=== PATIENT | male | born 1990 ===

== ENCOUNTER 2017-04-10 23:56 | Observation (INO) | payer SELFPAY ==
--- NOTE | 2017-04-11 00:42 | C.PDOC ---
History Of Present Illness <Mauro Farias Oswaldo - Last Filed: 04/11/17 06:48> <Susanna Gregory - Last Filed: 04/12/17 01:10> Patient is a 27 year old male who was brought in by police and EMS after he was found chasing imaginary people and [place]. Patient was agitated and combative on arrival, threatening to the staff. Patient was put in restraints on arrival and medicated with ativan and haldol, patient has not verbalized any physical complaints at this time. (Mauro Farias) History Per: EMS History/Exam Limitations: no limitations Onset/Duration Of Symptoms: Hrs Current Symptoms Are (Timing): Still Present Suicide/Self Injury Attempted (Context): None Modifying Factor(s): None Associated Symptoms: Agitation, Paranoia. denies: Depression, Suicidal Thoughts , Suicidal Plan Recent travel outside of the [place]: No Additional History Per: EMS, Law Enforcement <FariasIrwinMauro R - Last Filed: 04/11/17 06:48> <Susanna Gregory - Last Filed: 04/12/17 01:10> Chief Complaint (Nursing): Psychiatric Evaluation Past Medical History Reviewed: Historical Data, Nursing Documentation, Vital Signs - Medical History PMH: No Chronic Diseases Surgical History: No Surg Hx Family History: States: Unknown Family Hx - Social History Hx Alcohol Use: No Hx Substance Use: No <FariasIrwinMauro R - Last Filed: 04/11/17 06:48> Review Of Systems Constitutional: Negative for: Fever, Chills Gastrointestinal: Negative for: Nausea, Vomiting, Diarrhea <FariasMauro Chacon - Last Filed: 04/11/17 06:48> Physical Exam - Physical Exam Appears: Non-toxic, Combative, Agitated Skin: Normal Color, Warm, Dry Head: Atraumatic, Normacephalic Eye(s): bilateral: Normal Inspection, EOMI Oral Mucosa: Moist Chest: Symmetrical, No Tenderness Cardiovascular: Rhythm Regular, No Murmur Respiratory: Normal Breath Sounds, No Rales, No Rhonchi, No Wheezing Gastrointestinal/Abdominal: Soft, No Tenderness Neurological/Psych: Oriented x3, Normal Speech, Normal Cognition <JarrettMauro Chacon - Last Filed: 04/11/17 06:48> ED Course And Treatment - Laboratory Results Result Diagrams: 04/11/17 00:50 04/11/17 00:50 ECG: Interpreted By Me, Viewed By Me ECG Rhythm: Sinus Rhythm, R BBB ECG Interpretation: No Acute Changes Interpretation Of ECG: NSR, RBBB borderline tracings Rate From EC O2 Sat by Pulse Oximetry: 98 (Room air) Pulse Ox Interpretation: Normal - Radiology CXR: Interpreted by Me, Viewed By Me CXR Interpretation: Yes: No Acute Disease, Other (normal chest x-ray). No: Infiltrates, COPD, Cardiomegaly Progress Note: Blood work and urinalysis ordered. Ativan and haldol administered on arrival. <Mauro Farias - Last Filed: 04/11/17 06:48> - Laboratory Results Result Diagrams: 04/11/17 00:50 04/11/17 00:50 <Susanna Gregory - Last Filed: 04/12/17 01:10> ED OBSERVATION <Mauro Farias - Last Filed: 04/11/17 06:48> <Susanna Gregory - Last Filed: 04/12/17 01:10> - Progress Note Progress Note: 04/12/17 01:09 vitals stable, no complaints, still awaitig [place] [facility] [place] Disposition - Disposition Disposition Time: 06:50 <Mauro Farias - Last Filed: 04/11/17 06:48> <Susanna Gregory - Last Filed: 04/12/17 01:10> - Disposition Condition: STABLE - Clinical Impression Clinical Impression: Schizophrenia - Scribe Statement The provider has reviewed the documentation as recorded by the Scribe <Mauro Farias - Last Filed: 04/11/17 06:48> <ColtValjose miguel - Last Filed: 04/12/17 01:10> - Scribe Statement Homer Moya All medical record entries made by the Scribe were at my direction and personally dictated by me. I have reviewed the chart and agree that the record accurately reflects my personal performance of the history, physical exam, medical decision making, and the department course for this patient. I have also personally directed, reviewed, and agree with the discharge instructions and disposition. (Mauro Farias) Physician Patient Turnover Patient Signed Over To: Mj Lacey DO Handoff Comments: awaiting [facility] screener. Patient has been evaluate by crisis. <Mauro Farias - Last Filed: 04/11/17 06:48>
[2017-04-11 00:53] LABS: BASO # 0.1 K/uL (0.0-0.2); BASO % 0.5 % (0.0-2.0); EOS % 0.4 % (0.0-4.0); LYMPH # 1.4 K/uL (1.0-4.3); LYMPH % 11.7 % (20.0-40.0); MEAN CELL VOLUME 89.9 fL (80.0-94.0); MEAN CORPUSCULAR HEMOGLOBIN 29.5 pg (27.0-31.0); MEAN CORPUSCULAR HGB CONC 32.9 g/dL (33.0-37.0); MEAN PLATELET VOLUME 7.9 fL (7.2-11.7); MONO # 0.8 K/uL (0.0-0.8); MONO % 6.9 % (0.0-10.0); NRBC % 0.1 % (0.0-2.0); RED CELL DISTRIBUTION WIDTH 13.2 % (11.5-14.5); WHITE BLOOD COUNT 12.3 K/uL (4.8-10.8)
[2017-04-11 01:00] LABS: RBC URINE < 1 /hpf (0-3); URINE BACTERIA RARE (<OCC); URINE BILIRUBIN NEGATIVE (NEGATIVE); URINE BLOOD NEGATIVE (NEGATIVE); URINE COLOR Yellow (YELLOW); URINE GLUCOSE (UA) NORMAL (Normal); URINE KETONE NEGATIVE (NEGATIVE); URINE LEUKOCYTE ESTERASE NEG Leu/uL (Negative); URINE PROTEIN NEGATIVE (NEGATIVE); URINE UROBILINOGEN NORMAL mg/dL (0.2-1.0); WBC URINE 3 /hpf (0-5)
[2017-04-11 01:06] LABS: CHLORIDE 97 mmol/L (98-107)
[2017-04-11 01:07] LABS: POTASSIUM 3.6 mmol/L (3.6-5.2); SODIUM 137 mmol/L (132-148)
[2017-04-11 01:09] LABS: ALB/GLOB RATIO 1.7 (1.0-2.1); ALKALINE PHOSPHATASE 48 U/L (38-126); AST/SGOT 28 U/L (17-59); BILIRUBIN,TOTAL 0.6 mg/dL (0.2-1.3); CARBON DIOXIDE 27 mmol/L (22-30); GFR AFRICAN-AMERICAN > 60; TOTAL PROTEIN 7.5 g/dL (6.3-8.3)
[2017-04-11 01:10] LABS: ALCOHOL SERUM < 10 mg/dl (0-10); ALT/SGPT 22 U/L (21-72); BLOOD UREA NITROGEN 17 mg/dL (9-20); CALCIUM 8.7 mg/dl (8.6-10.4); GLUCOSE,RANDOM 118 mg/dL (75-110)
--- NOTE | 2017-04-11 08:52 | PCM.PSYCH ---
Initial Psychiatric Evaluation - Initial Psychiatric Evaluation Chief Complaint (in patient's own words): "I wanna go home!!!" History of Present Illness and Precipitating Events: Pt is seen, chart reviewed, case discussed The patient is seen, chart reviewed and case discussed. Consultation was requested because of patient's acute psychotic/manic presentation. This is a 27-year-old male, single with 3 children, living with his siblings. However, our staff contacted his father and he claims he was living with a girlfriend, but then the patient later told another staff that he was homeless. The patient was discharged from [facility] inpatient psychiatry unit yesterday with a plan to follow-up tomorrow at their outpatient facility. He was admitted there on April 02 with similar presentation; agitated, confused and very psychotic. He was given a prescription for Seroquel 200 mg twice a day, but the patient still has the paper prescription. The patient was very uncooperative with the radio news writer and he increasingly cuts more agitated and hostile. He started to scream "I want to leave" at the end and security had to be called. He was pacing in his room, almost about to attack. Last night when he was brought to emergency room he was extremely agitated and had to be medicated and put on four point restraints. Police had found him in a station where he was talking to self, screaming, making bizarre statements about confucianism, God, etc. He does not report any complaints but is very guarded. Denies SI, HI, del/ halluc. No known medical problems No known family or past psych hx. His father reported that he had been "aggressive" for a long time and used street drugs (name?) a lot. However, [facility] was his first admission. Current Medications: Active Medications Generic Name Dose Route Start Last Admin Trade Name Freq PRN Reason Stop Dose Admin Benztropine Mesylate 1 mg 04/11/17 08:50 Cogentin IM Q2H PRN acute dystonia max 4x/24h Haloperidol Lactate 5 mg 04/11/17 08:49 Haldol IM Q1H PRN agitation, max 4x/24h Lorazepam 2 mg 04/11/17 08:49 Ativan IM Q1H PRN severe agitation, max 4x/24h Quetiapine Fumarate 200 mg 04/11/17 09:00 Seroquel PO BID [facility] Past Psychiatric History - Past Psychiatric History Previous Treatment History: Inpatient Pertinent Medical Hx (Current Medical&Sleep Prob, Allergies): Allergies Allergy/AdvReac Type Severity Reaction Status Date / Time No Known Allergies Allergy Verified 04/11/17 00:22 Unobtainable 04/11/17 Review of Systems - Review of Systems Systems not reviewed;Unavailable: Psychotic (and uncooperative, agitated and somewhat confused.) Mental Status Examination - Personal Presentation Personal Presentation: Looks older than stated age - Affect Affect: Constricted - Motor Activity Motor Activity: Psychomotor Agitation - Reliability in Providing Information Reliability in Providing Information: Poor, due to alteration in thoughts, Poor , due to altered mood - Speech Speech: Disorganized - Mood Mood: Other (agitation) - Formal Thought Process Formal Thought Process: Delusions, Paranoia, Loosening of associations - Cognitive Functions Sensorium: Drowsy Attention/Concentration: Easily distracted Abstract Thinking: Hayti Estimate of Intelligence: Below average Judgement: Imparied, as evidence by: Poor judgement Memory: Recent impaired, as evidence by: Inability to recall events of the day, Remote impaired as evidenced by: Inability to recall sig life events - Risk Risk: Elopement, Other (he can hurt others or self) - Limitations Limitations: Living alone DSM 5 DX - DSM 5 DSM 5 Diagnosis: Psychosis - unspecified r/o Schizoaffective d/o - bipolar type Cannabis use d/o - severe r/o synthetic cannabionid use (aka Spice, K2...) - Recommended/Plan of Treatment Treatment Recommendations and Plan of Treatment: Continue Seroquel 200 mg BID as rx'ed by sachin Blakely geodon, cogentin.. 1:1 Monitor closely [facility] [place] as he is a risk to self and others. 33 min
--- NOTE | 2017-04-11 08:54 | RAD ---
HISTORY: Screening examination COMPARISON: 04/08 TECHNIQUE: Chest PA and lateral FINDINGS: LUNGS: No active pulmonary disease. PLEURA: No significant pleural effusion identified. No pneumothorax apparent. CARDIOVASCULAR: Normal. OSSEOUS STRUCTURES: No significant abnormalities. VISUALIZED UPPER ABDOMEN: Normal. OTHER FINDINGS: None. IMPRESSION: No active disease.
[2017-04-12 05:03] VITALS: BP 105/64; PULSE 76; RESP 16; TEMP 97.8; O2SAT 99
--- NOTE | 2017-04-12 18:34 | CARD ---
APPROVED REPORT EKG Measurement Heart [id number] <Conclusion> Normal sinus rhythm RSR' or QR pattern in V1 suggests right ventricular conduction delay Borderline ECG
== END 2017-04-12 05:18 | disposition short-term general hospital (02) ==
LOC: C.ER 23:56 → C.9OBSV 04-12 01:10
PROVIDERS: ADMIT Emergency Medicine; ATTEND Emergency Medicine
DX: F20.9 Schizophrenia, unspecified (principal); F12.90 Cannabis use, unspecified, uncomplicated; Z59.0 Homelessness; Z78.1 Physical restraint status
CPT/HCPCS: 80053; 81001; 85025; 93005; 99285; G0480; J1630; J2060